=== PATIENT | female | born 1995 | race Caucasian/White ===

== ENCOUNTER 2016-12-15 21:33 | Inpatient (IN) | payer OTHER ==
[~2016-12-15] VITALS: Ht 172.7 cm; Wt 67.5 kg
[~2016-12-15 21:33] MED LIST: MOTRIN800 MG PO; PRENATAL TABLE1 EAC3 PO; TYLENOL SO167 MG/5 M PO; VICODIN,LORT1 TABLET PO; Vicodin,Lortab 5/500 PO
[2016-12-15 21:58] LABS: HEMATOCRIT 36.3 % (36.0-46.0); MCH 29.5 PG (29.0-34.0); MCHC 34.2 G/DL (30.0-36.0); MCV 86.2 FL (83-99); MEAN PLAT.VOLUME 9.7 uM^3 (9.5-12.4); PLATELET COUNT 274 K/uL (156-360); RBC DIS.WIDTH-CV 12.4 % (11.8-14.6); RBC DIS.WIDTH-SD 38.7 % (39-53); RED BLOOD COUNT 4.21 M/uL (3.80-5.20)
[2016-12-15 22:07] LABS: CHLORIDE 106 mEq/L (99-109); POTASSIUM 3.4 mEq/L (3.7-5.4); SODIUM 140 mEq/L (136-147)
[2016-12-15 22:09] LABS: GLUCOSE 106 mg/dL (70-99)
[2016-12-15 22:11] LABS: ANION GAP 8 MEQ/L (2-14); TOTAL BILIRUBIN 0.3 mg/dL (0.0-1.0)
[2016-12-15 22:13] LABS: ALKALINE PHOSPHATASE 71 IU/L (3-129); GFR ESTIMATE (CALCULATED) > 59 mL/min/
[2016-12-15 22:14] LABS: UREA NITROGEN (BUN) 17 mg/dL (9-23)
[2016-12-15 22:21] LABS: QUANTITATIVE HCG < 4.0 MIU/ML
[2016-12-15 22:36] LABS: LIPASE 13 U/L (1.0-51.0)
[2016-12-16 00:28] LABS: ADD MIUA? NO; BILIRUBIN NEGATIVE; BLOOD NEGATIVE; COLOR YELLOW ((YELLOW)); GLUCOSE (STRIP) NEGATIVE; KETONES 5; LEUKOCYTES NEGATIVE; NITRITE NEGATIVE; PROTEIN (STRIP) NEGATIVE; SPECIFIC GRAVITY 1.034 (1.000-1.030); UCUL ADDED? NO; UROBILINOGEN 0.2 MG/DL (0.2-1.0)
[2016-12-16 00:43] LABS: INTER. NORMALIZED RATIO 1.1; PROTHROMBIN TIME 11.2 (9.2-11.2); PTT 25.5 (25-32)
[2016-12-16 01:50] VITALS: BP 106/57
[2016-12-16 07:15] VITALS: BP 115/67
[2016-12-16 08:45] LABS: HEMATOCRIT 33.7 % (36.0-46.0); MCH 28.9 PG (29.0-34.0); MCHC 33.2 G/DL (30.0-36.0); MCV 87.1 FL (83-99); MEAN PLAT.VOLUME 10.2 uM^3 (9.5-12.4); PLATELET COUNT 244 K/uL (156-360); RBC DIS.WIDTH-CV 12.5 % (11.8-14.6); RBC DIS.WIDTH-SD 39.8 % (39-53); RED BLOOD COUNT 3.87 M/uL (3.80-5.20); WHITE BLOOD COUNT 7.7 K/uL (4.1-10.2)
[2016-12-16] MEDS ORDERED: ETH-OXYDOS20 MG/1 ML PO (11:54)
[2016-12-16 12:05] VITALS: BP 110/57
[2016-12-16] MEDS ORDERED: OXYCODONE H5 MG/5 ML PO (12:06)
[2016-12-16] MEDS ORDERED: Tylenol PO (12:06)
== END 2016-12-16 15:41 | disposition home or self-care (01) | DRG 761 ==
LOC: EME 21:33 → EDOF 12-16 00:47 → 2EAST 12-16 00:47
PROVIDERS: Emergency Medicine; Obstetrics & Gynecology
DX: N83.201 Unspecified ovarian cyst, right side (principal); F32.9 Major depressive disorder, single episode, unspecified
CPT/HCPCS: 74177; 76856; 80053; 81003; 83690; 84702; 85027; 85610; 85730; 86850; 86900; 86901; 99281; 99285; J1170; J1885; J2405; J7030

== ENCOUNTER 2017-03-06 16:42 | Emergency (ER) | payer OTHER ==
[~2017-03-06] VITALS: Ht 175.3 cm; Wt 63.6 kg
[~2017-03-06 16:42] MED LIST changes: +ETH-OXYDOS20 MG/1 ML PO; +OXYCODONE H5 MG/5 ML PO; +Tylenol PO
[2017-03-06 17:44] LABS: ADD MIUA? NO; BILIRUBIN NEGATIVE; BLOOD NEGATIVE; COLOR YELLOW ((YELLOW)); GLUCOSE (STRIP) NEGATIVE; KETONES NEGATIVE; LEUKOCYTES NEGATIVE; NITRITE NEGATIVE; PROTEIN (STRIP) NEGATIVE; SPECIFIC GRAVITY 1.023 (1.000-1.030); UROBILINOGEN 0.2 MG/DL (0.2-1.0)
[2017-03-06 18:49] LABS: EOSINOPHIL (%) 1.5 % (0-5); EOSINOPHIL COUNT 0.1 K/uL (0-0.3); HEMATOCRIT 39.6 % (36.0-46.0); IMMATURE GRANULOCYTE (%) 0.3 % (0.0-0.7); INSTRUMENT ABS NEUTROPHIL CT 4.5 K/uL; LYMPHOCYTE COUNT 2.2 K/uL (1.0-2.8); MCH 29.3 PG (29.0-34.0); MCHC 32.8 G/DL (30.0-36.0); MCV 89.4 FL (83-99); MEAN PLAT.VOLUME 9.7 uM^3 (9.5-12.4); MONOCYTE (%) 5.8 % (3-12); MONOCYTE COUNT 0.4 K/uL (0-0.8); NEUTROPHIL (%) 62.3 % (45-76); NEUTROPHIL COUNT 4.5 K/uL (1.8-6.4); PLATELET COUNT 291 K/uL (156-360); RBC DIS.WIDTH-CV 12.7 % (11.8-14.6); RBC DIS.WIDTH-SD 41.8 % (39-53); RED BLOOD COUNT 4.43 M/uL (3.80-5.20); WHITE BLOOD COUNT 7.3 K/uL (4.1-10.2)
[2017-03-06 18:58] LABS: CHLORIDE 107 mEq/L (99-109); SODIUM 141 mEq/L (136-147)
[2017-03-06 19:01] LABS: GLUCOSE 94 mg/dL (70-99)
[2017-03-06 19:02] LABS: ANION GAP 7 MEQ/L (2-14); TOTAL BILIRUBIN 0.4 mg/dL (0.0-1.0)
[2017-03-06 19:04] LABS: ALKALINE PHOSPHATASE 66 IU/L (3-129); GFR ESTIMATE (CALCULATED) > 59 mL/min/
[2017-03-06 19:05] LABS: UREA NITROGEN (BUN) 16 mg/dL (9-23)
[2017-03-06 19:08] LABS: LIPASE 17 U/L (1.0-51.0)
[2017-03-06 19:16] LABS: QUANTITATIVE HCG < 4.0 MIU/ML
[2017-03-06] MEDS ORDERED: MOTRIN800 MG PO (19:41)
[2017-03-06] MEDS ORDERED: NORCO 7.5/321 TABLET PO (19:41)
[2017-03-06 20:23] VITALS: BP 112/68
[2017-03-09 13:21] LABS: CHLAMYDIA TRACHOMATIS NEGATIVE; NEISSERIA GONORRHOEAE NEGATIVE
== END 2017-03-06 20:24 | disposition home or self-care (01) ==
LOC: EME 16:42
PROVIDERS: Physician Assistant
DX: R10.2 Pelvic and perineal pain (principal); N83.201 Unspecified ovarian cyst, right side; Z90.721 Acquired absence of ovaries, unilateral
CPT/HCPCS: 76856; 80053; 81003; 83690; 84702; 85025; 87210; 87491; 87591; 93975; J3010